=== PATIENT | female | born 1955 | race Caucasian/White ===

== ENCOUNTER 2018-03-07 20:02 | Emergency (ER) | payer OTHER ==
[2018-03-07] MEDS ORDERED: ONDANSETRON DISINTEGRATING 4 MG TAB PO ONE (20:52)
[2018-03-07] MEDS ORDERED: fentaNYL 100 MCG/2 ML INJ IVP ONE (20:52)
[2018-03-07] MEDS ORDERED: HYOSCYAMINE SULFATE 0.125 MG TAB PO ONE (20:52)
[2018-03-07] MEDS ORDERED: LIDOCAINE 2% VISCOUS 15 ML UDCUP PO ONE (20:52)
[2018-03-07] MEDS ORDERED: MAG HYDROX/AL HYDROX/SIMETH 30 ML UDCUP PO ONE (20:52)
[2018-03-07] MEDS ORDERED: NS 500 ML IV ONE (20:52)
[2018-03-07] MEDS ORDERED: FAMOTIDINE 20 MG/NACL 50 ML IV ONE (20:52)
[2018-03-07] MEDS ORDERED: ONDANSETRON 4 MG/2 ML VIAL ONE (20:56)
--- NOTE | 2018-03-07 20:56 | EDPHY ---
H & P Time Seen by Provider: 03/07/18 20:43 HPI/ROS: CHIEF COMPLAINT: Epigastric pain HISTORY OF PRESENT ILLNESS: Patient is a 62-year-old female who presents emergency department epigastric pain for the last 3-4 hours. Her pain is moderate to severe. It is waxing and waning. It radiates to the left upper abdomen. She has had 3 episodes of nonbloody emesis. Positive nausea. No diarrhea. No fevers or chills. No chest pain or shortness of breath. Patient had similar symptoms for months ago. She was seen at the hospital with discharge. REVIEW OF SYSTEMS: My complete review of systems is negative except as mentioned in the HPI. Past Medical/Surgical History: Negative Past surgical history: Negative Social history: Patient smokes. Smoking Status: Current every day smoker Physical Exam: 37.1, 172/91, 82, 18, 93% on room air GENERAL: No acute distress, alert. HEENT: Eyes normal to inspection, normal pharynx, no signs of dehydration. NECK: No thyromegaly, no lymphadenopathy, supple. RESPIRATORY: Clear to auscultation bilaterally, no rales, rhonchi or wheezing. CVS: Regular rate and rhythm, no rubs, murmurs, or gallops. ABDOMEN: Soft, epigastric tenderness to palpation with no rebound or guarding, nondistended, no organomegaly. BACK: Normal to inspection, no CVA tenderness. SKIN: Normal color, no rash, warm, dry. No pallor. EXTREMITIES: No pedal edema, no calf tenderness, no Homans sign or cords, no joint swelling. NEURO/PSYCH: Alert and oriented, normal mood and affect, normal motor sensory exam. Constitutional: Initial Vital Signs Temperature (C) 37.1 C 03/07/18 20:08 Heart Rate 82 03/07/18 20:08 Respiratory Rate 18 03/07/18 20:08 Blood Pressure 172/91 H 03/07/18 20:08 O2 Sat (%) 93 03/07/18 20:08 O2 Delivery Mode Room Air Allergies/Adverse Reactions: No Known Allergies Allergy (Unverified 03/07/18 20:13) Home Medications: Medication Instructions Recorded NK [No Known Home Meds] 03/07/18 Otc Nausea Med 03/07/18 Percocet 5-325 mg Tablet 03/07/18 Medical Decision Making ED Course/Re-evaluation: In the emergency department I discussed possible etiologies with the patient. I answered all her questions. An IV was placed. Laboratory studies were obtained. Patient was given fentanyl 100 mcg IV, Zofran 4 mg IV, Pepcid 20 mg IV, and a GI cocktail for discomfort and symptoms. Reviewed the patient's laboratory studies. [place] [address]. Hematocrit 46. Platelet count 255. Her chemistry panel was unremarkable except for sodium 168. Her troponin was negative at less than 0.012. Her LFTs were normal. Lipase normal. EKG shows normal sinus rhythm, normal rate, normal axis, right bundle branch block. There are no ST or T-wave abnormalities. Chest x-ray: No acute disease noted. I discussed all results with the patient 2155: I rechecked the patient. She is feeling much better. Her pain is completely resolved. On repeat exam her abdomen is soft, nontender nondistended. I discussed disposition options. The patient feels comfortable being discharged home. I gave the patient and her daughter warnings. She will return with worsening symptoms. She was given a prescription of Pepcid and Zofran. Differential Diagnosis: My differential includes but is not limited to pancreatitis, cholecystitis, cholangitis, hiatal hernia, small-bowel obstruction, perforation, GERD, peptic ulcer disease, ACS, acute OK - Data Points Laboratory Results: Laboratory Results 03/07/18 21:00 03/07/18 20:30 03/07/18 03/07/18 21:00 20:30 WBC 15.54 10^3/uL H 10^3/uL (3.80-9.50) RBC 5.50 10^6/uL H 10^6/uL (4.18-5.33) Hgb 14.9 g/dL g/dL (12.6-16.3) Hct 46.9 % % (38.0-47.0) MCV 85.3 fL fL (81.5-99.8) MCH 27.1 pg L pg (27.9-34.1) MCHC 31.8 g/dL L g/dL (32.4-36.7) RDW 14.2 % % (11.5-15.2) Plt Count 255 10^3/uL 10^3/uL (150-400) MPV 9.6 fL fL (8.7-11.7) Neut % (Auto) 88.9 % H % (39.3-74.2) Lymph % (Auto) 8.0 % L % (15.0-45.0) [place] % (Auto) 2.6 % L % (4.5-13.0) Eos % (Auto) 0.0 % L % (0.6-7.6) Baso % (Auto) 0.2 % L % (0.3-1.7) Nucleat RBC Rel Count 0.0 % % (0.0-0.2) Absolute Neuts (auto) 13.82 10^3/uL H 10^3/uL (1.70-6.50) Absolute Lymphs (auto) 1.25 10^3/uL 10^3/uL (1.00-3.00) Absolute Monos (auto) 0.40 10^3/uL 10^3/uL (0.30-0.80) Absolute Eos (auto) 0.00 10^3/uL L 10^3/uL (0.03-0.40) Absolute Basos (auto) 0.03 10^3/uL 10^3/uL (0.02-0.10) Absolute Nucleated RBC 0.00 10^3/uL 10^3/uL (0-0.01) Immature Gran % 0.3 % % (0.0-1.1) Immature Gran # 0.04 10^3/uL 10^3/uL (0.00-0.10) Sodium 139 mEq/L mEq/L (135-145) Potassium 4.2 mEq/L mEq/L (3.5-5.2) Chloride 101 mEq/L mEq/L (97-110) Carbon Dioxide 26 mEq/l mEq/l (22-31) Anion Gap 12 mEq/L mEq/L (8-16) BUN 15 mg/dL mg/dL (7-23) Creatinine 0.5 mg/dL L mg/dL (0.6-1.0) Estimated GFR > 60 Glucose 168 mg/dL H mg/dL (70-100) Calcium 9.3 mg/dL mg/dL (8.5-10.4) Total Bilirubin 0.5 mg/dL mg/dL (0.1-1.4) Conjugated Bilirubin 0.4 mg/dL mg/dL (0.0-0.5) Unconjugated Bilirubin 0.1 mg/dL mg/dL (0.0-1.1) AST 22 IU/L IU/L (14-46) ALT 29 IU/L IU/L (9-52) Alkaline Phosphatase 90 IU/L IU/L (38-126) Troponin I < 0.012 ng/mL ng/mL (0.000-0.034) Total Protein 7.1 g/dL g/dL (6.3-8.2) Albumin 4.4 g/dL g/dL (3.5-5.0) Lipase 45 IU/L IU/L (23-300) Medications Given: Discontinued Medications Al Hydroxide/Mg Hydroxide (Maalox Susp) 30 ml PO ONCE ONE Stop: 03/07/18 20:53 Last Admin: 03/07/18 21:08 Dose: 30 ml Fentanyl (Sublimaze) 100 mcg IVP EDNOW ONE Stop: 03/07/18 20:53 Last Admin: 03/07/18 21:07 Dose: 100 mcg Hyoscyamine Sulfate (Levsin, Hyomax-Sl) 0.25 mg PO ONCE ONE Stop: 03/07/18 20:53 Last Admin: 03/07/18 21:07 Dose: 0.25 mg Sodium Chloride (Ns) 500 mls @ 0 mls/hr IV EDNOW ONE; Wide Open PRN Reason: Protocol Stop: 03/07/18 20:53 Last Admin: 03/07/18 21:06 Dose: 500 mls Famotidine/Sodium Chloride (Pepcid 20 Mg (Premix)) 50 mls @ 200 mls/hr IV EDNOW ONE Stop: 03/07/18 21:06 Last Admin: 03/07/18 21:07 Dose: 50 mls Lidocaine (Lidocaine 2% Viscous) 15 ml PO ONCE ONE Stop: 03/07/18 20:53 Last Admin: 03/07/18 21:07 Dose: 15 ml Ondansetron HCl (Zofran Odt) 4 mg PO EDNOW ONE Stop: 03/07/18 20:53 Last Admin: 03/07/18 20:59 Dose: Not Given Ondansetron HCl (Zofran) 4 mg IVP EDNOW ONE Stop: 03/07/18 20:59 Last Admin: 03/07/18 21:07 Dose: 4 mg Departure - Departure Disposition: Home, Routine, Self-Care Clinical Impression: Abdominal pain Qualifiers: Abdominal location: epigastric Qualified Code(s): R10.13 - Epigastric pain Condition: Good Instructions: Acute Abdominal Pain (ED) Additional Instructions: Return with increasing pain, vomiting, fever, shortness of breath, chest pain or any other concerns. Referrals: Onel Buck MD [[facility] [place] Primary Care Provider] - 3-4 days, if not improved
[2018-03-07] MEDS ORDERED: ONDANSETRON 4 MG/2 ML VIAL IVP ONE (20:58)
--- NOTE | 2018-03-07 21:04 | CPEKG ---
Heart Rate: 82 RR Interval: 732 P-R Interval: 156 QRSD Interval: 130 QT Interval: 408 QTC Interval: 477 P [place]: 65 QRS [place]: 66 T Wave [place]: -2 EKG Severity - ABNORMAL ECG - EKG Impression: SINUS RHYTHM EKG Impression: RIGHT BUNDLE BRANCH BLOCK Electronically Signed By: Jane Carbajal 07-Mar-2018 22:36:04
[2018-03-07 21:08] LABS: PLATELET COUNT 255 10^3/uL (150-400)
[2018-03-07] MEDS ORDERED: ONDANSETRON 4MG PREPACK#2 BTL TAKEHOME ONE (22:01)
[2018-03-07 22:22] VITALS: BP 169/91
== END 2018-03-07 22:32 | disposition home or self-care (01) ==
DX: R10.13 Epigastric pain (principal); E86.9 Volume depletion, unspecified; F17.200 Nicotine dependence, unspecified, uncomplicated
CPT/HCPCS: 96365; J2405; J3010

== ENCOUNTER 2018-03-08 03:27 | Day surgery (SDC) | payer OTHER ==
[2018-03-08] MEDS ORDERED: NS 1,000 ML IV ONE (03:41)
[2018-03-08] MEDS ORDERED: ONDANSETRON 4 MG/2 ML VIAL IVP ONE (03:54)
[2018-03-08] MEDS ORDERED: HYDROmorphONE/DILAUDID 1 MG/ML INJ IVP PRN (03:54)
[2018-03-08] MEDS ORDERED: HYDROmorphONE/DILAUDID 2 MG/ML INJ ONE (03:57)
--- NOTE | 2018-03-08 03:58 | EDPHY ---
H & P Stated Complaint: seen earlier for same, c/o abd pain/n/v, since last visit seem worse Time Seen by Provider: 03/08/18 03:40 HPI/ROS: HPI The patient presents with progressive abdominal pain for the last 1 day. The pain is epigastric, sharp, intermittent, radiates toward her back. It is associated with nausea and vomiting. Her symptoms are getting progressively worse. She was seen in the emergency department yesterday and had elevated white blood cell count at 15,000, otherwise labs were normal, she had a normal chest x-ray, after receiving fentanyl her pain completely improved and she was discharged. She says while in the car home her pain began to come back in since has gotten progressively worse. REVIEW OF SYSTEMS Constitutional: No fever, no chills. Eyes: No discharge. ENT: No sore throat. Cardiovascular: No chest pain, no palpitations. Respiratory: No cough, no shortness of breath. Gastrointestinal: See HPI Genitourinary: No hematuria. Musculoskeletal: No back pain. Skin: No rashes. Neurological: No headache. PMHx: Healthy, not on any medications, no prior abdominal operations Soc Hx: Here with her daughter, Yi speaking PHYSICAL General Appearance: Alert, no distress Eyes: Pupils equal and round no pallor or injection ENT, Mouth: Mucous membranes moist Respiratory: There are no retractions, lungs are clear to auscultation Cardiovascular: Regular rate and rhythm Gastrointestinal: Abdomen is soft and tender in the epigastrium with mild distension Neurological: A&O, moves all extremities Skin: Warm and dry, no rashes Musculoskeletal: Neck is supple non tender Extremities: symmetrical, full range of motion Psychiatric: Patient is oriented X 3, there is no agitation Source: Patient Exam Limitations: No limitations - Medical/Surgical History Hx Asthma: No Hx Chronic Respiratory Disease: No Hx Diabetes: No Hx Cardiac Disease: No Hx Renal Disease: No Hx Cirrhosis: No Hx Alcoholism: No Hx HIV/AIDS: No Hx Splenectomy or Spleen Trauma: No Other PMH: none - Social History Smoking Status: Current every day smoker Constitutional: Initial Vital Signs Temperature (C) 37.2 C 03/08/18 03:32 Heart Rate 103 H 03/08/18 03:32 Respiratory Rate 22 H 03/08/18 03:32 Blood Pressure 185/94 H 03/08/18 03:32 O2 Sat (%) 85 L 03/08/18 03:32 O2 Delivery Mode Nasal Cannula O2 (L/minute) 3 Allergies/Adverse Reactions: No Known Allergies Allergy (Unverified 03/07/18 20:13) Home Medications: Medication Instructions Recorded Famotidine [Pepcid 20 MG (*)] 20 mg PO BID #10 tab 03/07/18 Ondansetron Odt [Zofran Odt 4 mg 4 mg PO Q4PRN PRN #7 tab 03/07/18 (*)] Otc Nausea Med 03/07/18 Percocet 5-325 mg Tablet 03/07/18 Medical Decision Making - Diagnostics Imaging Results: CT scan abdomen pelvis demonstrates acute appendicitis, discussed with Dr. Yanez of Radiology. Procedures: Bedside limited abdominal Ultrasound- performed and interpreted by me. Indication: Epigastric abdominal pain Findings: No gallstones seen, no pericholecystic fluid, no sonographic Diaz's Impression: No sonographic evidence of cholecystitis Differential Diagnosis: This is a 62-year-old female who presents with 1 day of epigastric abdominal pain associated with nausea and vomiting. She was seen earlier today, her pain improved, now it is worse. On exam, she is tachycardic, tender in the epigastrium. Differential diagnosis includes biliary colic, cholecystitis, gastritis, perforated gastric ulcer, pancreatitis, less likely appendicitis. Plan for repeat basic labs, pain medication, CT scan of abdomen pelvis to further evaluate. Patient was given IV fluids, pain medications with improvement in her symptoms. Labs were checked and revealed increased leukocytosis. CT scan of the abdomen pelvis demonstrated acute appendicitis. I discussed this with her and her daughter at the bedside. I have ordered antibiotics for her. I have consulted with the on-call general surgeon Dr. Brown will see the patient in consultation though likely plan for OR later this morning. I have discussed this with the patient and her his daughter and have answered their questions. - Data Points Laboratory Results: Laboratory Results 03/08/18 03:45 03/08/18 03:45 03/08/18 03/08/18 03/08/18 05:13 03:45 03:45 WBC 16.46 10^3/uL H 10^3/uL (3.80-9.50) RBC 5.32 10^6/uL 10^6/uL (4.18-5.33) Hgb 14.6 g/dL g/dL (12.6-16.3) Hct 45.4 % % (38.0-47.0) MCV 85.3 fL fL (81.5-99.8) MCH 27.4 pg L pg (27.9-34.1) MCHC 32.2 g/dL L g/dL (32.4-36.7) RDW 14.4 % % (11.5-15.2) Plt Count 258 10^3/uL 10^3/uL (150-400) MPV 9.6 fL fL (8.7-11.7) Neut % (Auto) 79.1 % H % (39.3-74.2) Lymph % (Auto) 12.9 % L % (15.0-45.0) [place] % (Auto) 7.5 % % (4.5-13.0) Eos % (Auto) 0.0 % L % (0.6-7.6) Baso % (Auto) 0.1 % L % (0.3-1.7) Nucleat RBC Rel Count 0.0 % % (0.0-0.2) Absolute Neuts (auto) 13.02 10^3/uL H 10^3/uL (1.70-6.50) Absolute Lymphs (auto) 2.12 10^3/uL 10^3/uL (1.00-3.00) Absolute Monos (auto) 1.24 10^3/uL H 10^3/uL (0.30-0.80) Absolute Eos (auto) 0.00 10^3/uL L 10^3/uL (0.03-0.40) Absolute Basos (auto) 0.02 10^3/uL 10^3/uL (0.02-0.10) Absolute Nucleated RBC 0.00 10^3/uL 10^3/uL (0-0.01) Immature Gran % 0.4 % % (0.0-1.1) Immature Gran # 0.06 10^3/uL 10^3/uL (0.00-0.10) Sodium 137 mEq/L mEq/L (135-145) Potassium 4.2 mEq/L mEq/L (3.5-5.2) Chloride 99 mEq/L mEq/L (97-110) Carbon Dioxide 27 mEq/l mEq/l (22-31) Anion Gap 11 mEq/L mEq/L (8-16) BUN 14 mg/dL mg/dL (7-23) Creatinine 0.6 mg/dL mg/dL (0.6-1.0) Estimated GFR > 60 Glucose 136 mg/dL H mg/dL (70-100) Calcium 8.8 mg/dL mg/dL (8.5-10.4) Total Bilirubin 0.6 mg/dL mg/dL (0.1-1.4) Conjugated Bilirubin 0.5 mg/dL mg/dL (0.0-0.5) Unconjugated Bilirubin 0.1 mg/dL mg/dL (0.0-1.1) AST 19 IU/L IU/L (14-46) ALT 40 IU/L IU/L (9-52) Alkaline Phosphatase 85 IU/L IU/L (38-126) Total Protein 6.8 g/dL g/dL (6.3-8.2) Albumin 4.2 g/dL g/dL (3.5-5.0) Lipase 57 IU/L IU/L (23-300) Urine Color YELLOW Urine Appearance CLEAR Urine pH 6.0 (5.0-7.5) Ur Specific [place] > 1.035 H (1.002-1.030) Urine Protein NEGATIVE (NEGATIVE) Urine Ketones 1+ H (NEGATIVE) Urine Blood 2+ H (NEGATIVE) Urine Nitrate NEGATIVE (NEGATIVE) Urine Bilirubin NEGATIVE (NEGATIVE) Urine Urobilinogen NEGATIVE EU EU (0.2-1.0) Ur Leukocyte Esterase NEGATIVE (NEGATIVE) Urine RBC 10-15 /hpf H /hpf (0-3) Urine WBC 1-3 /hpf /hpf (0-3) Ur Epithelial Cells Not Reported Urine Mucus TRACE /lpf /lpf (NONE-1+) Urine Glucose NEGATIVE (NEGATIVE) Medications Given: Discontinued Medications Hydromorphone HCl (Dilaudid) 0.5 mg IVP Q4 PRN PRN Reason: Pain, Severe Unable to Take PO Stop: 03/18/18 03:53 Last Admin: 03/08/18 03:58 Dose: 0.5 mg Sodium Chloride (Ns) 1,000 mls @ 0 mls/hr IV EDNOW ONE; Wide Open PRN Reason: Protocol Stop: 03/08/18 03:42 Last Admin: 03/08/18 03:48 Dose: 1,000 mls Ceftriaxone Sodium/Dextrose (Rocephin 1 Gm (Premix)) 50 mls @ 100 mls/hr IV EDNOW ONE PRN Reason: Protocol Stop: 03/08/18 05:51 Last Admin: 03/08/18 05:29 Dose: 50 mls Metronidazole/Sodium Chloride (Flagyl 500 Mg (Premix)) 100 mls @ 100 mls/hr IV ONCE ONE PRN Reason: Protocol Stop: 03/08/18 06:21 Last Admin: 03/08/18 05:49 Dose: 100 mls Ketorolac Tromethamine (Toradol) 15 mg IVP EDNOW ONE Stop: 03/08/18 05:22 Last Admin: 03/08/18 05:28 Dose: 15 mg Ondansetron HCl (Zofran) 4 mg IVP EDNOW ONE Stop: 03/08/18 03:55 Last Admin: 03/08/18 03:58 Dose: 4 mg Departure - Departure Disposition: To OP Cath/Surgery Clinical Impression: Acute appendicitis Qualifiers: Acute appendicitis type: with localized peritonitis Qualified Code(s): K35.3 - Acute appendicitis with localized peritonitis Condition: Good
[2018-03-08 03:59] LABS: PLATELET COUNT 258 10^3/uL (150-400)
[2018-03-08] MEDS ORDERED: IOPAMIDOL (ISOVUE-300) 100 ML BTL ONE (04:36)
[2018-03-08] MEDS ORDERED: KETOROLAC 15 MG/1 ML SDV IVP ONE (05:21)
[2018-03-08] MEDS ORDERED: BUPIVACAINE/EPI 0.5% 30 ML SDV ONE (06:04)
[2018-03-08] MEDS ORDERED: PROPOFOL 200 MG/20 ML VIAL ONE (06:30)
[2018-03-08] MEDS ORDERED: fentaNYL 100 MCG/2 ML INJ ONE ×2 (06:30→07:40)
--- NOTE | 2018-03-08 06:50 | POSTOPPROG ---
Post Op Note Date of Operation: 03/08/18 Surgeon: Pedro Brown Anesthesiologist: Javier De Leon Anesthesia: GET(General Endotracheal) Pre-op Diagnosis: Acute appendicitis Post-op Diagnosis: Same Procedure: Lap Appy Findings: suppurative appendix Inf/Abcess present in the surg proc area at time of surgery?: Yes Depth: Organ Space EBL: Minimal Complications: no immediate Specimen(s): appendix
--- NOTE | 2018-03-08 06:53 | GHP ---
[f rep st] PREOP HISTORY AND PHYSICAL DATE OF ADMISSION: 03/08/2018 REASON FOR EVALUATION: Appendicitis. HISTORY OF PRESENT ILLNESS: 62-year-old Persian female, visiting her daughter from [place], presents to the emergency room this morning with worsening generalized abdominal pain with radiation towards her back. She was initially seen early today with complaints of sudden onset pain starting early yesterday morning. She was seen in the emergency room with resolution of pain with fentanyl administration. She was discharged with recurrence of her symptoms later that morning. Because of progressive increase in symptoms, she re- presented to the emergency room at 4 o'clock today. Symptoms also included nausea and vomiting. She denies diarrhea. She reports too multiple prior quasi similar episodes of similar pain, never quite as severe. A colonoscopy is up-to-date within the last month. She is without voiding complaints. She is currently pain free with readministration of analgesics. PAST MEDICAL HISTORY: Hypertension. PAST SURGICAL HISTORY: Carpal tunnel release. MEDICATIONS: None at present. She was prescribed a prior antihypertensive which she decided to discontinue. ALLERGIES: No known drug allergies. SOCIAL: No significant alcohol. Occasional tobacco. FAMILY HISTORY: Noncontributory. REVIEW OF SYSTEMS: Notable for above GI complaints only. Otherwise negative 10 -point review. PHYSICAL EXAMINATION: VITAL SIGNS: Temperature 37.2, blood pressure 130/90, pulse 100, respirations 18. GENERAL: Patient is alert, appropriate, comfortable. EYES: Anicteric. NECK: No cervical or supraclavicular lymphadenopathy. HEART: Regular. LUNGS: Clear. ABDOMEN: Soft, distended. Minimal tenderness without rebound or guarding. EXTREMITIES: Without edema. NEUROLOGIC: Alert and appropriate. SKIN: Without rashes. LABORATORY DATA: White count 16, hemoglobin 15, platelets of 260. Electrolytes within reference range. Liver enzymes within reference range. Urinalysis: 2+ blood and 10-[address] images were directly reviewed on PACS. A notably dilated appendix with enhancement and periappendiceal stranding. No free air. No free fluid. IMPRESSION: Acute appendicitis. PLAN: Laparoscopic appendectomy. Risks and benefits were explained to the patient and daughter in detail, including bleeding, infection, open conversion, as well as alternative diagnoses. All questions were answered. They desire to proceed. /[id number]/MODL MTDD
[2018-03-08] MEDS ORDERED: NS 500 ML IV PRN (06:54)
[2018-03-08] MEDS ORDERED: fentaNYL 100 MCG/2 ML INJ IVP PRN (06:54)
[2018-03-08] MEDS ORDERED: PHENYLEPHRINE HCL 100 MCG/ML SYR IVP PRN (06:54)
[2018-03-08] MEDS ORDERED: HYDROmorphONE/DILAUDID 2 MG/ML INJ IVP PRN ×2 (06:54→07:00)
[2018-03-08] MEDS ORDERED: NALOXONE HCL 0.4 MG/ML INJ IVP PRN (06:54)
[2018-03-08] MEDS ORDERED: ONDANSETRON 4 MG/2 ML VIAL IVP PRN (06:54)
[2018-03-08] MEDS ORDERED: epHEDrine SULFATE 10 MG/ML SYR IVP PRN (06:54)
--- NOTE | 2018-03-08 06:54 | PDANEPAE ---
ANE History of Present Illness 62 year old female w/ PMHx of HTN (off her meds) presents with n/v and abdominal pain for laparoscopic appendectomy. ANE Past Medical History - Cardiovascular History Hx Hypertension: Yes Hx Arrhythmias: No Hx Chest Pain: No Hx Coronary Artery / Peripheral Vascular Disease: No Hx CHF / Valvular Disease: No Hx Palpitations: No - Pulmonary History Hx COPD: No Hx Asthma/Reactive Airway Disease: No Hx Recent Upper Respiratory Infection: No Hx Oxygen in Use at Home: No Hx Sleep Apnea: No - Endocrine History Hx Diabetes: No Hypothyroid: No Hyperthyroid: No Obesity: mild - Renal History Hx Renal Disorders: No - Liver History Hx Hepatic Disorders: No - Neurological & Psychiatric Hx Hx Neurological and Psychiatric Disorders: No - Cancer History Hx Cancer: No - Congenital Disorder History Hx Congenital Disorders: No - GI History GERD: mild - Chronic Pain History Chronic Pain: No - Surgical History Prior Surgeries: Carpal tunnel surgery ANE Review of Systems Review of systems is: negative Review of Systems: - Exercise capacity Exercise capacity: >=4 METS ANE Patient History - Allergies Allergies/Adverse Reactions: No Known Allergies Allergy (Unverified 03/07/18 20:13) - Home Medications Home medications: home medication list seen and reviewed Home Medications: Otc Nausea Med 03/07/18 [Last Taken Unknown] Percocet 5-325 mg Tablet 03/07/18 [Last Taken Unknown] - Anes Hx Anes Hx: no prior problems - Smoking Hx Smoking Status: Current every day smoker Marijuana use: No - Alcohol Use Alcohol Use: Rarely - Family Anes Hx Family Anes Hx: neg - N/A ANE Labs/Vital Signs - Labs Result Diagrams: 03/08/18 03:45 03/08/18 03:45 - Vital Signs Vital Signs: reviewed preoperatively; see RN documention for details Blood Pressure: 138/83 Heart Rate: 86 Respiratory Rate: 18 O2 Sat (%): 96 Weight: 90 kg ANE Physical Exam - Airway Neck exam: FROM, increased neck circumference, short neck Mallampati Score: Class 2 Mouth exam: abnormal chin - Pulmonary Pulmonary: no respiratory distress - Cardiovascular Cardiovascular: regular rate and rhythym - ASA Status ASA Status: II, E ANE Anesthesia Plan Anesthesia Plan: general endotracheal anesthesia Total IV Anesthesia: No Urgent/Emergent Case: Alida veliz completed preop but documented later for safe timely pt care
[2018-03-08] MEDS ORDERED: ONDANSETRON 4 MG/2 ML VIAL ONE (06:55)
[2018-03-08] MEDS ORDERED: DEXAMETHASONE 4 MG/ML VIAL ONE (06:55)
[2018-03-08] MEDS ORDERED: LIDOCAINE 2% 5 ML SDV ONE (06:55)
[2018-03-08] MEDS ORDERED: ROCURONIUM 50 MG/5 ML VIAL ONE (06:55)
--- NOTE | 2018-03-08 07:44 | POSTANESTH ---
Post Anesthetic Evaluation Cardiovascular Status: Normal, Stable, Similar to Pre-Op Cond Respiratory Status: Similar to Pre-op Cond., Other, See Comment (Patient is heavy smoker. Capnography profile in OR consistent with patient with COPD. Patient's family (daughter) educated on this finding, recommend discontinuation of smoking.) Level of Consciousness/Mental Status: Can Participate in Eval, Alert and Oriented Pain Control: Adequate, Prn Tx Ordered Nausea/Vomiting Control: Adequate, Prn Tx Ordered Complications Possibly Related to Anesthesia: None Noted
[2018-03-08] MEDS ORDERED: ALBUTEROL 3 ML DEYVIAL ONE ×2 (07:52→09:35)
[2018-03-08] MEDS: ALBUTEROL 3 ML DEYVIAL IH PRN ×2 (07:55→09:37)
--- NOTE | 2018-03-08 07:57 | GOP ---
[f rep st] OPERATIVE REPORT DATE OF OPERATION: 03/08/2018 SURGEON: Pedro Brown MD ANESTHESIA: General. ANESTHESIOLOGIST: Javier De Leon MD. PREOPERATIVE DIAGNOSIS: Acute appendicitis. POSTOPERATIVE DIAGNOSIS: Acute appendicitis. PROCEDURE PERFORMED: Laparoscopic appendectomy. FINDINGS: Suppurative appendix. INDICATIONS: 62-year-old female with acute appendicitis. She is undergoing a laparoscopic appendectomy at this time. Risks and benefits were explained of bleeding, infection, open conversion, as well as alternative diagnoses. All questions were answered. She desires to proceed. DESCRIPTION OF PROCEDURE: After general anesthesia was induced, the abdomen was preinjected with 0.5% Marcaine with epinephrine. A vertical infraumbilical cutdown was created. A 10 mm trocar was placed under direct visualization. Two additional 5 mm lower midline ports were inserted. The appendix was acutely thickened with suppuration without evidence of perforation. The mesoappendix was divided with Harmonic scalpel. The base was transected flush with the cecum with an endoscopic JAY stapler. The specimen was brought through the umbilical port intact using EndoCatch pouch. Satisfactory hemostasis was assured. Trocars were removed under direct visualization. The infraumbilical midline fascia was closed with a running Vicryl suture. The wounds were closed with Monocryl suture followed by Dermabond. The patient was taken to recovery uneventfully. /[id number]/MODL MTDD
[2018-03-08] MEDS ORDERED: HYDROCODONE/APAP 5/325 TAB ONE (09:07)
--- NOTE | 2018-03-08 09:29 | PDHOMEO2F ---
Home Oxygen Face to Face Home Orders: I certify that a physician or a nurse practitioner or physician's assistant laboratory director has had a [id number] encounter with this patient on the date of this order due to the diagnosis listed, which relates to the primary reason the patient requires home oxygen. Alternative treatments have been tried, or considered, and deemed ineffective. It is anticipated that supplemental oxygen will result in improvement with treatment. Home oxygen qualifying diagnosis: chronic tobacco abuse/possible COPD s/p laparascopic appendectomy SpO2 on room air (%): 84 Frequency of home oxygen needed: continuous Home oxygen liters per minute: 2 Home oxygen delivery device: nasal cannula Concentrator: Yes E-tanks for mobility and back up: Yes If ordering portable O2, is the patient mobile in the home?: Yes I certify that, based on these findings, the home oxygen is medically necessary for this patient for the following length of time. Length of time home oxygen needed: 1 week Home Oxygen Comment: will only need supplemental oxygen for 24-48 hours
[2018-03-08 09:32] VITALS: BP 119/67
[2018-03-08] MEDS ORDERED: HYDROCODONE/APAP 5/325 TAB PO ONE (09:45)
--- NOTE | 2018-03-08 20:50 | POSTANESTH ---
Post Anesthetic Evaluation Cardiovascular Status: Normal, Stable, Similar to Pre-Op Cond Respiratory Status: Similar to Pre-op Cond., Tx Decrease in SpO2 Level of Consciousness/Mental Status: Can Participate in Eval, Alert and Oriented Pain Control: Adequate, Prn Tx Ordered Nausea/Vomiting Control: Adequate, Prn Tx Ordered Complications Possibly Related to Anesthesia: None Noted (Patient needed to be discharged home with home O2. Appreciate Dr. João Wolf seeing patient.)
== END 2018-03-08 12:35 | disposition home or self-care (01) ==
LOC: FSGY 06:25
PROVIDERS: ATTEND Surgery
PROC: 0DTJ4ZZ Resection of Appendix, Percutaneous Endoscopic Approach (ICD-10-PCS; principal; 2018-03-08 06:00)
DX: K35.3 Acute appendicitis with localized peritonitis (principal); Z72.0 Tobacco use; I10 Essential (primary) hypertension; I70.0 Atherosclerosis of aorta; M51.36 Other intervertebral disc degeneration, lumbar region
CPT/HCPCS: 96365; J0696; J1100; J1170; J1885; J2405; J2704; J3010; J7613; Q9967